=== PATIENT | male | born 1940 | race Caucasian/White ===

== ENCOUNTER → 2018-04-19 | Outpatient (CLI) | payer MEDICARE, OTHER ==
--- NOTE | 2018-04-19 15:36 | DIREP ---
PROCEDURE:L-SPINE 3 VIEWS TECHNIQUE:AP, lateral, and coned down lateral views of the lumbar spine are provided. COMPARISON:[facility] CT, CR, XRAY SPINE LUMBAR 2-3 VWS, 11/02/2016, 12:50 PM. INDICATIONS:INTERVERTEBRAL DISC DISORDERS WITH MYELOPATHY, LUMBAR SPINE FINDINGS: ALIGNMENT:Normal. SURGERY:A laminectomy has been performed from the L3 through L5 levels. Interpedicular fusion hardware extends from the L4 through L5 levels, and appears to be intact. VERTEBRAE:Normal. DISK SPACES:Normal. SPONDYLOLISTHESIS:None. SACROILIAC JOINTS:Normal. 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 Aortoiliac atherosclerotic vascular calcium. CONCLUSION:L3-L5 laminectomy. L4-L5 posterior fusion. Dictated by: Donnie Rich Jr. on 04/19/2018 at 03:32 PM
== END | disposition home or self-care (01) ==
LOC: RAD 10:16
PROVIDERS: ATTEND Internal Medicine
DX: M51.06 Intervertebral disc disorders with myelopathy, lumbar region (principal); I70.0 Atherosclerosis of aorta; M16.10 Unilateral primary osteoarthritis, unspecified hip; G95.89 Other specified diseases of spinal cord
CPT/HCPCS: 72100